=== PATIENT | male | born 1995 | race Caucasian/White ===

== ENCOUNTER 2016-04-28 11:22 | Emergency (ER) | payer OTHER ==
[~2016-04-28] VITALS: Ht 170.2 cm; Wt 101.0 kg
[2016-04-28 11:26] VITALS: TEMP 37; Ht 170.2 cm; Wt 101.0 kg
[2016-04-28] MEDS ORDERED: SODIUM CHLORIDE 0.9% 1000ML 1,000 ML IV STA (12:21)
[2016-04-28] MEDS ORDERED: DEXAMETHASONE SOD INJ 4 MG/ML VIAL IV STA (12:21)
[2016-04-28] MEDS ORDERED: DiphenhydrAMINE HCL 50 MG/ML VIAL IV STA (12:21)
[2016-04-28] MEDS ORDERED: KETOROLAC TROMETHAMINE 30 MG/ML VIAL IV STA (12:21)
[2016-04-28 12:52] LABS: BASO % 0.5 %; BASO ABS # 0.03 K/uL (0-0.2); COMPLETE YES; EOS % 5.3 %; IG% 0.3 %; LYMPH ABS # 1.56 K/uL (1.2-3.4); MEAN CELL VOLUME 78.8 fL (80-100); MEAN CORPUSCULAR HGB CONC 34.2 g/dl (32-36); MEAN PLATELET VOLUME 8.8 fL (7.4-10.4); MONO % 6.7 %; NEUT % 61.2 %; PLATELET COUNT 307 K/uL (130-400); RED BLOOD COUNT 5.71 M/uL (4.7-6.1); WHITE BLOOD COUNT 5.99 K/uL (4.8-10.8)
[2016-04-28 13:09] LABS: BUN/CREATININE RATIO 11.1 (10-20); CALCIUM 9.4 mg/dl (8.5-10.1); CREATININE 1.1 mg/dl (0.60-1.40)
--- NOTE | 2016-04-28 13:10 | DIAGNOSTIC IMAGING REPORT ---
CT SCAN OF THE BRAIN WITHOUT IV CONTRAST CLINICAL HISTORY: Headache. COMPARISON STUDY: No priors. TECHNIQUE: Unenhanced axial CT scan of the brain is performed from the vertex to the skull base. Automated dose control exposure was utilized. CT DOSE: 638.56 mGycm FINDINGS: Brain parenchyma: There is a focus of low-attenuation within the right frontal periventricular white matter. The brain parenchyma is otherwise normal in appearance. There is no hemorrhage, mass effect, or evidence of acute territorial ischemia by CT criteria. Blunt-white matter is preserved. No extra-axial fluid collection is seen. Ventricles, sulci, cisterns: Normal in configuration. Intracranial vasculature: The visualized intracranial vasculature at the skull base is normal in appearance. Calvarium: Unremarkable. Sinuses and mastoids: There is subtotal opacification of the right maxillary antrum. Moderate mucosal thickening is seen within the ethmoid sinuses. Mild mucosal thickening is seen within the left maxillary antrum and the frontal sinuses. The mastoid air cells are well pneumatized. Orbits: The bony orbits are grossly intact. IMPRESSION: 1. No acute intracranial abnormality. 2. There is a focus of low-attenuation within the right frontal periventricular white matter. This is indeterminant and likely related to a remote insult. If further assessment is desired an MRI of the brain would be appropriate. 3. Paranasal sinus disease as above, greatest in the right maxillary antrum. Correlate clinically for evidence of acute sinusitis. Electronically signed by: Wilber Bajwa M.D. 04/28/2016 1:08 PM Dictated Date/Time: 04/28/2016 1:05 PM
[2016-04-28 14:11] LABS: URINE APPEARANCE CLEAR (CLEAR); URINE BILIRUBIN NEG (NEG); URINE COLOR YELLOW; URINE NITRITE NEG (NEG); URINE PH 6.5 (4.5-7.5); URINE SPECIFIC GRAVITY 1.012 (1.000-1.030); UROBILINOGEN NEG (NEG)
[2016-04-28 14:22] LABS: MANUAL MICROSCOPIC REQUIRED? NO; REVIEW REQ? NO
[2016-04-28 14:22] LABS: LYME DISEASE AB IGG NEG (NEG); LYME DISEASE AB IGM NEG (NEG)
--- NOTE | 2016-04-28 14:53 | DIAGNOSTIC IMAGING REPORT ---
MRI OF THE BRAIN COMBO CLINICAL HISTORY: Headache. COMPARISON STUDY: CT of the brain dated 04/28/2016. TECHNIQUE: MRI of the brain was performed utilizing various T1 and T2-weighted sequences in the axial, sagittal, and coronal planes. Contrast-enhanced sequences were acquired following the administration of 10 cc of Gadavist. FINDINGS: Brain parenchyma: There is an 8 mm cystic focus in the right frontal white matter seen on axial image #13. An additional foci of white matter change is seen on axial T2 image #16. The brain parenchyma is otherwise normal in appearance. There is no hemorrhage or mass effect. There is no restricted diffusion identified typical for acute ischemia. A punctate focus of. Restricted diffusion in the high right posterior frontal white matter on image #16 could not be corroborated on the ADC maps and likely represents T2 shine through. No enhancing mass lesion is identified on the postcontrast images. Blunt-white matter differentiation is preserved. No extra-axial fluid collection is seen. The cerebellar tonsils are normal in configuration. Ventricles, sulci, and cisterns: Normal in configuration. Pituitary and sella: Unremarkable. Intracranial vasculature: Normal flow voids are maintained at the skull base. Orbits: The bony orbits are grossly intact. Orbital contents are normal in appearance. Sinuses and mastoids: There is near complete opacification of the right maxillary antrum. Moderate mucosal thickening is seen in the ethmoid sinuses. Mild mucosal thickening is noted in the frontal and left maxillary sinuses. The mastoid air cells are clear. Calvarium: Unremarkable. Cervical cord: Partially visualized cervical spinal cord is normal in morphology and signal intensity. IMPRESSION: 1. There is no hemorrhage, enhancing mass, or evidence of acute ischemia. 2. There are 2 foci of signal abnormality, one of which is cystic in the right sided white matter. These are of doubtful acute significance and likely related to remote insults. 3. Paranasal sinus disease as above. Correlate clinically for evidence of sinusitis. Electronically signed by: Wilber Bajwa M.D. 04/28/2016 2:52 PM Dictated Date/Time: 04/28/2016 2:43 PM
[2016-04-28 15:33] VITALS: BP 134/76; PULSE 80; O2SAT 98
--- NOTE | 2016-04-29 19:56 | EMERGENCY ROOM VISIT NOTE ---
ED Visit Note First contact with patient: 11:52 CHIEF COMPLAINT: Headache. HISTORY OF PRESENT ILLNESS: Mr. Patel is a 20 year-old male who ambulates into the ED complaining of a severe headache. Historically patient reports his headaches started last year and have returned this year. He reports last fall he was having headaches behind his left eye. They were not severe. He was seen at a local urgent care center and [facility] who felt these were sinus issues and were encouraged to use sinus medications. They resolved over the summer and fall and return this weekend. Patient reports over the weekend he developed moderate headaches behind her left eye that lasted for approximately 5-10 minutes and then self resolved. On the headaches were similar and not the worst headache of his life. He did not have to take any medications for this pain. Patient reports this morning approximately 10 AM, approximately 1.5 hours ago, he finished working out and he developed a headache and since that time it has been severe and constant. He describes the pain as a stabbing sensation behind his left eye. He rates his discomfort 7/10. The pain is nonradiating. He has not identified any aggravating or alleviating factors related to the pain. He has not taken any medication for pain prior to arrival at the hospital. Associated with his pain he reports he has mild light sensitivity. He denies fevers, chills, sweats, skin eruptions, skin color changes, recent head trauma, recent eye trauma, recent dental work/surgery, dizziness, lightheadedness, visual changes, discharge/tearing from the eyes, hearing changes, difficulty speaking, difficulty swallowing, neck pain/stiffness, upper respiratory tract symptoms, extremity weakness/numbness/tingling, chest pain, shortness of breath, decreased appetite, nausea, vomiting, abdominal pain. REVIEW OF SYSTEMS: As noted above in History of Present Illness; all body systems were reviewed with the patient and found to be negative unless noted above otherwise. PAST MEDICAL HISTORY: Status post anal fissure repair. CURRENT MEDICATIONS: Patient denies. ALLERGIES TO MEDICATIONS: Patient denies. 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 PHYSICAL EXAM: Vital Signs: Date Time Temp Pulse Resp B/P Pulse Ox O2 Delivery O2 Flow Rate FiO2 04/28/16 15:33 80 18 134/76 98 Room Air 04/28/16 13:23 64 16 129/74 100 04/28/16 11:26 37.0 91 16 110/67 97 Room Air GENERAL: 20 year-old male in moderate distress due to pain, afebrile and hemodynamically stable. Found lying in a darkened room with sunglasses on. NEUROLOGIC: Awake, alert and oriented to person place and time. Answering questions appropriately and following commands. Cranial nerves II-XII grossly intact. Deep tendon reflexes 2+ and bilaterally symmetric. No focal neurologic deficits noted. Romberg test negative. Pronator drift test negative. Good short-term and long-term recall. Normal rapid alternating movements of the hands and fingers. Normal cohn test. SKIN: Warm, dry and pink. No rashes, lesions or soft tissue trauma noted. HEENT: Normocephalic, atraumatic. Skull: No bony deformity, depressions or tenderness. No raccoon's eyes or hayden signs. No drainage from the ears or nostril; no hemotympanum. No facial bony tenderness, swelling or erythema. PERRLA. EOMI without nystagmus. Funduscopic examination was unremarkable with normal optic disc discs and no signs of increased intracranial pressure. His white and conjunctiva pink without drainage. External ears are nontender. Auditory canals are pink and patent. Tympanic membranes are pearly jacobs with normal light reflex. Oral cavity is moist and pink. Airway is patent. Uvula is midline. No signs of abscess or infection. No carotid bruits. No JVD. BACK: No bony cervical, thoracic or lumbar back pain. No nuchal rigidity or tenderness. Full range of motion of the cervical spine. THORAX: Lungs clear to auscultation and equal bilaterally with no wheezing, crackles, rhonchi or stridor and equal chest wall movements. HEART: Regular rate and rhythm with no murmurs, rubs or gallops. ABDOMEN: Soft and nontender with bowel sounds present in all quadrants; no rigidity, rebound tenderness, organomegaly or guarding. MUSCULOSKELETAL: Full range of motion of all joints without any significant discomfort and the gait is normal. 5/5 muscle strength in all movements of the upper and lower extremities. ED COURSE: Patient is assessed as noted above. Laboratory Testing: Test 04/28/16 12:40 04/28/16 13:53 Range/Units White Blood Count 5.99 4.8-10.8 K/uL Red Blood Count 5.71 4.7-6.1 M/uL Hemoglobin 15.4 14.0-18.0 g/dL Hematocrit 45.0 42-52 % Mean Corpuscular Volume 78.8 80-100 fL Mean Corpuscular Hemoglobin 27.0 25-34 pg Mean Corpuscular Hemoglobin Concent 34.2 32-36 g/dl Platelet Count 307 130-400 K/uL Mean Platelet Volume 8.8 7.4-10.4 fL Neutrophils (%) (Auto) 61.2 % Lymphocytes (%) (Auto) 26.0 % Monocytes (%) (Auto) 6.7 % Eosinophils (%) (Auto) 5.3 % Basophils (%) (Auto) 0.5 % Neutrophils # (Auto) 3.66 1.4-6.5 K/uL Lymphocytes # (Auto) 1.56 1.2-3.4 K/uL Monocytes # (Auto) 0.40 0.11-0.59 K/uL Eosinophils # (Auto) 0.32 0-0.5 K/uL Basophils # (Auto) 0.03 0-0.2 K/uL RDW Standard Deviation 40.1 36.4-46.3 fL RDW Coefficient of Variation 14.2 11.5-14.5 % Immature Granulocyte % (Auto) 0.3 % Immature Granulocyte # (Auto) 0.02 0.00-0.02 K/uL Sodium Level 142 136-145 mmol/L Potassium Level 4.0 3.5-5.1 mmol/L Chloride Level 106 98-107 mmol/L Carbon Dioxide Level 27 21-32 mmol/L Anion Gap 9.0 3-11 mmol/L Blood Urea Nitrogen 12 7-18 mg/dl Creatinine 1.10 0.60-1.40 mg/dl Est Creatinine Clear Calc Drug Dose 119.3 ml/min Estimated GFR () 109.9 Estimated GFR (Non- 94.8 BUN/Creatinine Ratio 11.1 10-20 Random Glucose 88 70-99 mg/dl Calcium Level 9.4 8.5-10.1 mg/dl Lyme Disease IgG Antibody NEG NEG Lyme Disease IgM Antibody NEG NEG Urine Color YELLOW Urine Appearance CLEAR CLEAR Urine pH 6.5 4.5-7.5 Urine Specific [place] 1.012 1.000-1.030 Urine Protein NEG NEG Urine Glucose (UA) NEG NEG Urine Ketones NEG NEG Urine Occult Blood NEG NEG Urine Nitrite NEG NEG Urine Bilirubin NEG NEG Urine Urobilinogen NEG NEG Urine Leukocyte Esterase NEG NEG Head CT: Was reviewed by myself and read by the radiologist showing no acute intracranial abnormality, a focal low attenuation within the right frontal periventricular white matter. Subtotal opacification of the right maxillary antrum with moderate mucous school thickening seen within the ethmoid sinus and mild mucosal thickening within the left maxillary or frontal sinus and atrium. MRI/MRA Brain Combo: Was reviewed by myself and read by the radiologist showing no hemorrhage, and enhancing mass or evidence of acute ischemia. 2 foci of signal abnormality on which is cystic in the right sided white matter and was felt to be significant and likely related to a remote insult. Para sinus disease. Patient was hydrated with normal saline, he received 10 mg of Decadron IV, 25 mg of Benadryl IV and 30 mg of Toradol IV for her symptoms. Patient was reassessed multiple times during his stay in the emergency department. Patient's case was reviewed with Dr. Slaughter; we agreed on diagnostic approach, treatment, disposition and plan. Patient was educated about his condition and instructed on his treatment plan; he verbalized understanding and agreement with this plan. CLINICAL IMPRESSION: Acute headache. Sinusitis. 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 He is afebrile, well appearing, and hemodynamically stable. He has no signs of a sinus, dental, or ear infection and no evidence of meningismus. He is neurologically intact. I do not suspect a headache to be secondary to a subarachnoid hemorrhage, meningitis, encephalitis, or intracranial mass lesion. DISPOSITION: Patient was discharged to home in stable condition; prior to departure he was reassessed and subjectively reported he was pain-free. PLAN: Patient was encouraged to alternate ibuprofen and acetaminophen as needed for pain. Patient was encouraged to use [id number] decongestants and follow packaging instructions for dosing. Patient was encouraged to avoid heavy exercise for the next 3-4 days. Patient was encouraged to follow-up at [facility] for recheck if not completely better in 3-4 days. Patient was encouraged return the ED for worsening headaches, visual changes, abnormal neurological symptoms, fevers, vomiting or any new/concerning symptoms.
== END 2016-04-28 16:05 | disposition home or self-care (01) ==
LOC: C.EDB 11:23 → C.EDC 16:05
DX: R51 Headache (principal); J32.9 Chronic sinusitis, unspecified